=== PATIENT | female | born 1970 | race Caucasian/White ===

== ENCOUNTER 2024-05-03 08:35 | Outpatient (CLI) | payer BC | END 2024-05-03 23:59 | disposition home or self-care (01) | LOC: MRI 08:35 | PROVIDERS: ATTEND Podiatrist Foot & Ankle Surgery | DX: M77.41 Metatarsalgia, right foot (principal); M79.671 Pain in right foot; M25.374 Other instability, right foot; M20.41 Other hammer toe(s) (acquired), right foot | CPT/HCPCS: 73718 ==